=== PATIENT | male | born 1950 | race Caucasian/White ===

== ENCOUNTER 2019-10-14 13:13 | Inpatient (IN) ==
--- NOTE | 2019-10-14 15:00 | Diag Imaging Result Doc PS360 ---
EXAM: US GB < RUQ (LIMITED) HISTORY: RUQ abdo pain TECHNIQUE: Right upper quadrant ultrasound COMPARISON: None. FINDINGS: There is fatty infiltration of the liver. It is difficult to penetrate the liver. Normal gallbladder. No stones. No biliary ductal dilatation. Normal right kidney. No hydronephrosis. No ascites in the right upper quadrant. The aorta and pancreas are obscured. IMPRESSION: Fatty infiltration of the liver. Electronically signed by Cisco Bonner 10/14/2019 2:58 PM
[2019-10-14] MEDS ORDERED: TORADOL IV ONE (15:12)
--- NOTE | 2019-10-14 15:15 | EKG Report ---
Test Performed on : 10/14/2019 2:56:16 PM Test Reason : bp Blood Pressure : / mmHG Vent. Rate : 107 BPM Atrial Rate : 107 BPM P-R Int : 200 ms QRS Dur : 122 ms QT Int : 340 ms P-R-T Axes : 076 -39 044 degrees QTc Int : 453 ms Sinus tachycardia. Left axis deviation Right bundle branch block Minimal voltage criteria for LVH, may be normal variant Abnormal ECG No previous ECGs available Unconfirmed Result
[2019-10-14] MEDS ORDERED: TYLENOL PO ONE (15:43)
[2019-10-14 15:44] LABS: ALB/GLOB RATIO 1.5; ALBUMIN 4.8 g/dL (3.5-5.0); CALCIUM 10.4 mg/dL (8.8-10.2); CREATININE 1.6 mg/dL (0.7-1.2); POTASSIUM 4.4 mmol/L (3.5-5.1); TOTAL BILIRUBIN 0.7 mg/dL (0.20-1.00); TOTAL PROTEIN 8.1 g/dL (6.3-8.3)
[2019-10-14] MEDS ORDERED: NS 1,000 ML IV ONE (16:08)
--- NOTE | 2019-10-14 16:24 | Diag Imaging Result Doc PS360 ---
EXAM: CT ABDOMEN/PELVIS W/O CONTRAST HISTORY: abdo pain, leukocytosis TECHNIQUE: CT abdomen and pelvis without oral or intravenous contrast COMPARISON: None. FINDINGS: No calcified gallstones or adjacent inflammation. There is fatty infiltration of the liver. No splenomegaly. No inflammation about the pancreas. Normal adrenal glands. There are multiple bilateral renal stones. No left-sided hydronephrosis or left ureteral stone. There is a 6 x 6 x 7 mm stone in the mid right ureter with mild to moderate hydronephrosis. No aortic aneurysm. Prominent atherosclerosis. No bowel obstruction. No abscess. The urinary bladder is moderately distended. There are prostatic calcifications. Prostate is not enlarged. IMPRESSION: Right ureteral stone with hydronephrosis. There are multiple other bilateral nonobstructing renal stones. This exam was performed using automated exposure control, adjustment of mA or kV according to patient size, and/or use of iterative reconstruction technique. Electronically signed by Cisco Bonner 10/14/2019 4:21 PM
[2019-10-14] MEDS ORDERED: ROCEPHIN 1 GM in NS 50 ML IV ONE (16:43)
--- NOTE | 2019-10-14 16:53 | PROVIDER DOCUMENTATION ---
This chart was entered by Kaylie Franklin Scribe, acting as scribe for Marcus Pink MD. HPI-Abdominal Pain/GI Problem - General Chief Complaint: Abdominal Pain Stated Complaint: STOMACH PAIN DR CUNNINGHAM SENT PT Time Seen by Provider: 10/14/19 13:35 Source: patient Allergies/Adverse Reactions: Patient Allergies Allergy/AdvReac Type Severity Reaction Status Date / Time No Known Allergies Allergy Verified 10/14/19 15:23 - History of Present Illness-ABD Nature of Presenting Problems: 68yowm presents to ED cc RUQ pain that radiates to epigastric with nausea, vomiting, diarrhea and decreased appetite since Friday night. He reports he thought he had gotten food poisoning and today went to see Dr. Cunningham/PCP and after labs where his WBC was elevated and b/p was elevated he was sent to ED for further testing of gallbladder. Pt also has had fever today. He denies CP/SOB/Cough. His b/p is 173/101 upon exam. Abdominal Pain Onset Location: reports: RUQ Pain Radiation: reports: epigastric Quality of Pain: reports: sharp Severity in ED: reports: moderate Onset/Duration: reports: 2 days ago Timing: reports: still present, changing over time Activities at Onset: denies: eating Exposure to sick contacts?: No Modifying Factors: improves with: nothing Associated Symptoms: reports: diarrhea, nausea, vomiting Similar Symptoms Previously?: Yes Recently seen or treated by another doctor?: Yes (saw Dr. Cunningham/PCP at 11am today) Review of Systems - Adult - REVIEW OF SYSTEMS - ADULT Constitutional: reports: see HPI, chills, fever. denies: fatique Eyes: reports: no symptoms reported Ears, Nose, Mouth & Throat: reports: no symptoms reported Cardiovascular: reports: see HPI. denies: chest pain Respiratory: reports: see HPI. denies: cough, shortness of breath Gastrointestinal: reports: see HPI, abdominal pain (RUQ), diarrhea, nausea, poor appetite, vomiting Genitourinary: reports: no symptoms reported Musculoskeletal: reports: no symptoms reported Integumentary: reports: no symptoms reported Neurological: reports: no symptoms reported Psychiatric: reports: no symptoms reported Endocrine: reports: no symptoms reported Hematologic/Lymphatic: reports: no symptoms reported Allergic/Immunologic: reports: no symptoms reported All Other Systems: Reviewed and Negative Past History - Adult - PAST MEDICAL HISTORY-ADULT Review of Records: reports: Nursing Assessment Review, Medications Reviewed, Social history reviewed & non-contributory. Major Childhood Illnesses: reports: denies history Cardiovascular: reports: denies history Respiratory: reports: denies history Gastrointestinal: reports: denies history Obstetrical/Gynecological: reports: denies history Genitourinary: reports: denies history Musculoskeletal: reports: denies history Neurological: reports: denies history Endocrine/Immune: reports: denies history Other Conditions: reports: denies history - IMMUNIZATION STATUS Childhood Immunizations: See Nurse Assessment Flu Vaccine: See Nurse Assessment - FAMILY HISTORY Family History: reviewed, not pertinent Physical Exam-General - PHYSICAL EXAM-ADULT Initial Vital Signs Reviewed: Yes - CONSTITUTIONAL General Appearance: appears well, alert. negative: anxious, combative - EYES Eyes: PERRL/EOMI, pink conjunctivae. negative: photophobia - HEAD, EARS, NOSE, MOUTH & THROAT HENMT: normocephalic/atraumatic, moist mucous membranes. negative: angioedema - NECK Neck: non-tender, full range of motion, supple, normal inspection. negative: lymphadenopathy - RESPIRATORY Respiratory: chest non-tender, lungs clear, normal breath sounds. negative: r honchi, wheezing - CARDIOVASCULAR Cardiovascular: normal peripheral pulses, no edema, no murmur, tachycardia. negative: bradycardia - GASTROINTESTINAL (ABDOMEN) Abdominal Exam: normal bowel sounds, soft, tenderness (RUQ and epigastric). negative: distended, rigid - LYMPHATIC Lymphatic: no adenopathy. negative: enlargement - MUSCULOSKELETAL Back Exam: normal inspection, no CVA tenderness, no vertebral tenderness Extremity: normal range of motion, non-tender, normal gait, normal inspection, no pedal edema, no calf tenderness, normal capillary refill. negative: deformity, erythema, swelling - SKIN Integumentary: normal color, normal turgor, warm/dry. negative: diaphoresis, jaundice, rash - NEUROLOGIC Neurologic: maintainer plant II-XII nml as tested, grossly normal - PSYCHIATRIC Psych/Mental Status: normal mood/affect, oriented x 3. negative: anxious Progress - PLAN OF CARE/RESULTS Progress/Plan/Lab Results: Vital Signs - 8 hr 10/14/19 13:21 Temperature 100.3 F H Pulse Rate 118 H Respiratory Rate 16 Blood Pressure 170/95 O2 Sat by Pulse Oximetry 96 Orders Category Date Time Status NEWS Score 2-4:Order NEWS Lactate Series NOW Care 10/14/19 13:25 Completed NEWS Score 2-4:Order NEWS Lactate Series NOW Care 10/14/19 14:[address] ABD/PELVIS W/IV CONT ONLY [CT] Stat Exams 10/14/19 13:36 Ordered US GB < RUQ (LIMITED) [US] Stat Exams 10/14/19 13:36 Completed AMYLASE [CHEM] Stat Lab 10/14/19 14:27 Received COMPREHENSIVE METABOLIC PANEL [CHEM] Stat Lab 10/14/19 14:27 Received LIPASE [CHEM] Stat Lab 10/14/19 14:27 Received Ketorolac [Toradol] Med 10/14/19 15:12 Discontinued 15 mg IV NOW ONE EKG [EKG] Stat Ther 10/14/19 14:59 Ordered Result Diagrams: 10/14/19 14:27 - EKG 1 Time of EKG reading by physician:: 14:56 EKG Read and Signed by:: Marcus Pink EKG Interpretation (*Must complete 3 of following elements*): Abnormal Rate: 107 Rhythm: Sinus tachycardia Leggett: left QRS: RBB, LVH OH Interval: normal ST Wave: normal - CT/MRI 1 CT Study: Abdomen, Pelvis Impression: See EMR Report (IMPRESSION: Right ureteral stone with hydronephrosis. There are multiple other bilateral nonobstructing renal stones. This exam was performed using automated exposure control, adjustment of mA or kV according to patient size, and/or use of iterative reconstruction technique. Electronically signed by Cisco Bonner 10/14/2019 4:21 PM) - ULTRASOUND (By Radiology) 1 US Study: Abdomen Impression: See EMR Report (IMPRESSION: Fatty infiltration of the liver. Electronically signed by Cisco Bonner 10/14/2019 2:58 PM) - CONSULTS/PCP/HOSPITALIST Notification #1 *Consult/PCP/Hospitalist*: Dr. Billings [phone] Time Discussed: 16:42 Consult Disposition: other (admit to hospitalist and he will see pt upstairs) #2 Consult: Teresa/ALEX [phone] Time Discussed: 16:47 Consult Disposition: Admit Departure - Departure Date of Disposition Decision: 10/14/19 Time of Disposition Decision: 16:43 DIAGNOSIS: Kidney stone, Hydronephrosis, Leukocytosis Disposition: ADMITTED INPATIENT 09 Certified Medical Emergency: Emergent Condition: Fair Referrals and Follow-Ups: Marti Cunningham MD [Primary Care Provider] - - Critical Care Note This patient required my direct & personal management of CC.: No Attestation - Physician/ GLENN Attestation Patient care was provided by Advanced Practice Provider:: No The physician spent face to face time with patient:: Yes Advanced Practice Provider documentation review:: Supervising physician onsite and consulted in the evaluation and care of this patient. The physician did have a face to face encounter with the patient. This chart was documented by the indicated scribe, (Kaylie Franklin Scribe) and accurately reflects the services I performed and decisions made by me, Marcus Pink MD, as attested by the provider's signature.
[2019-10-14] MEDS ORDERED: ZOFRAN IV PRN (17:07)
[2019-10-14] MEDS ORDERED: TYLENOL PO PRN (17:07)
[2019-10-14 17:09] LABS: BASO# 0.15 X1000 (0.0-0.2); BASO% 0.8 % (0.0-0.8); HEMATOCRIT 49.8 % (42.0-52.0); HEMOGLOBIN 16.7 g/dL (14.0-18.0); IMM GRAN# 0.04 X1000 (0.0-0.04); IMM GRAN% 0.2 % (0.0-0.5); LYMPH# 1.16 X1000 (1.2-3.4); MCH 30.5 PG (27-31); MCHC 33.5 g/dL (33-37); MCV 90.9 FL (81-99); MONO# 2.33 X1000 (0.11-0.59); MONO% 12.1 % (1.7-9.3); MPV 9.6 FL (7.4-10.4); NEUT# 15.51 X1000 (1.4-6.5); NEUT% 80.9 % (42.2-75.2); PLT 213 X1000 (130-400); RBC 5.48 XMIL (4.7-6.1); RDW 13.2 % (11.5-14.5); WBC 19.19 X1000 (4.8-10.8)
[2019-10-14] MEDS ORDERED: FENTANYL ONE (17:44)
[2019-10-14] MEDS ORDERED: DIPRIVAN 1% ONE (17:44)
[2019-10-14 17:56] LABS: URINE SOURCE CLEAN CATCH
--- NOTE | 2019-10-14 17:58 | HISTORY AND PHYSICAL ---
HISTORY OF PRESENT ILLNESS: Mr. Frias is a 68-year-old followed by Dr. Marti Mcdaniel. He started having pain. This is , I think it started on Friday, right flank pain accompanied by nausea and vomiting, and it just continued to progress. He has had kidney stones before. He has had one that has been extracted and he has passed a couple of stones on his own. PAST MEDICAL HISTORY: Includes obstructive sleep apnea; hypertension, controlled on medicine. He has had benign prostatic hypertrophy. He has neuropathy. No history of diabetes. History of anxiety and depression. PAST SURGICAL HISTORY: As far as surgeries, he has had both knees replaced. He has had a kidney stone extracted. I am not sure which side. He did have his right 5th index finger caught in a universal joint of a [employer] and it was amputated. Otherwise unremarkable history. ALLERGIES: No known drug allergies. SOCIAL HISTORY: He does not smoke or drink alcohol. FAMILY HISTORY: Unremarkable. No heart, lung or kidney problems of which he is aware. REVIEW OF SYSTEMS: In general, no weight gain or loss. No fever or chills. HEENT unremarkable.Respiratory: No increased work of breathing or dyspnea. Cardiovascular: No chest pain or tachycardic palpitations. GI and are unremarkable except for above. Musculoskeletal/neurologic: No focal complaints. He does have known gallstones per ultrasound in the past. Apparently sent over from Dr. Mcdaniel's office where they had done lab. He did have leukocytosis. PHYSICAL EXAMINATION: GENERAL: On exam in the emergency room, awake and alert, very pleasant. Weight 260 pounds, height 6 feet. VITAL SIGNS: Temperature 100.3 degrees, pulse 118, respirations 16, blood pressure 170/95. HEENT: Pupils were equal and round. NECK: CVP less than 6 cm. No distended neck veins. LUNGS: Clear in all lung lowry. CARDIOVASCULAR: Regular rhythm and rate without murmur or S3. ABDOMEN: Soft. SKIN: Warm and dry. LABORATORY DATA: Sodium 136, potassium 4.4, chloride 94, BUN 23, creatinine 1.6. AST 27, ALT was 24, alkaline phosphatase was 112, amylase 30, lipase 12. DIAGNOSTIC DATA: CT of the pelvis and abdomen: Right ureteral stone with hydronephrosis; there are multiple other bilateral nonobstructing renal stones. Abdominal ultrasound: Fatty infiltration of the liver; no stones appreciated; normal gallbladder. ASSESSMENT AND PLAN: 1. Right hydronephrosis, right ureteral stone. Dr. Billings is aware, Urology. The stone measures 6 x 6 x 7 in the mid right ureter. It correlates to where he is hurting in the right flank. I think Dr. Billings is planning on cystourethroscopy and probably placing a stent. We are going to treat him with some antibiotics because of his leukocytosis and treat him for pyelonephritis as well. He has no known allergies, so I think we are good to put him on ceftriaxone 1 g now, then every 24 hours. 2. History of hypertension, aware. On looking at his home medicines, I do not know if we have those yet. I am not sure what he takes for blood pressure or if he takes anything. Actually, he is on Hyzaar. That is what he is taking, 100/12.5. We will continue that. 3. He has neuropathy. We will keep him on his gabapentin. Actually, he is taking gabapentin and Lyrica for his neuropathy. 4. He has a history of benign prostatic hypertrophy. We will continue his Flomax 0.4 mg daily. 5. History of anxiety and depression. Continue his Lexapro. cc: Maco Fitzgerald MD
[2019-10-14 18:10] LABS: BILIRUBIN URINE NEGATIVE (NEGATIVE); BLOOD URINE MODERATE (NEGATIVE); COLOR YELLOW; GLUCOSE URINE NEGATIVE (NEGATIVE); KETONE URINE NEGATIVE (NEGATIVE); LEUKOCYTES URINE NEGATIVE (NEGATIVE); NITRITE URINE NEGATIVE (NEGATIVE); PROTEIN URINE 50 mg/dL (NEGATIVE); SP GRAVITY URINE 1.024; TURBIDITY URINE CLEAR (CLEAR); UROBILINOGEN URINE NORMAL (NORMAL)
[2019-10-14 18:12] LABS: UR EPITHELIAL CELLS <10 /HPF (<10); URINE BACTERIA NEGATIVE /HPF; URINE RBC <10 /HPF (<10); URINE WBC <10 /HPF (<10)
--- NOTE | 2019-10-14 18:41 | CONSULTATION ---
DATE OF CONSULTATION: 10/14/2019 CHIEF COMPLAINT: Right ureteral stone with hydronephrosis and likely urinary tract infection. HISTORY OF PRESENT ILLNESS: Mr. Frias is a 68-year-old with history of hypertension, hypercholesterolemia, and history of nephrolithiasis who presents for consultation regarding abdominal and flank pain. The patient states for the past several days he has been having epigastric pain with nausea, vomiting, diarrhea, and decreased appetite. The patient states he has been able to tolerate p.o. intake since Friday and initially thought this may be food poisoning. The patient was seen by his primary care physician today and had blood work drawn which showed a leukocytosis with a white blood cell count of 20. He was found to have elevated blood pressure and was sent to the emergency room for further evaluation. In the emergency room the patient had a CT abdomen and pelvis which showed an obstructing right mid ureteral stone measuring approximately 6 mm in size causing proximal hydronephrosis. There were bilateral nonobstructing stones in both kidneys. The patient was evaluated in the emergency room and complaining of nausea and pain in the right mid abdomen with associated fevers. He says he had a temperature up to 100.2 at home and had a temperature at 100.3 degrees in the emergency room. Blood work shows creatinine elevated 1.6 with white blood cell count of 19. He states he has had prior stone surgery before most recently approximately 20 years ago and had to have "emergent surgery" for his kidney stone. He has been able to pass kidney stones since then. The patient feels like his symptoms are similar to other stone presentations, but not quite as severe. Initially, the patient thought that he had cholecystitis or an ileus. PAST SURGICAL HISTORY: 1. Ureteroscopic removal of kidney stones. 2. Right digit amputation. 3. Bilateral knee replacements. 4. Hernia surgery. PAST MEDICAL HISTORY: 1. Diverticulosis. 2. Hypertension. 3. Hyperlipidemia. 4. Nephrolithiasis. 5. Bilateral knee replacements. 6. BPH 7. Anxiety 8. Neuropathy ALLERGIES: None. MEDICATIONS: Medications have not been entered yet from his home medications. SOCIAL HISTORY: Denies tobacco or illicit drug use. FAMILY HISTORY: Denies family history of malignancy. REVIEW OF SYSTEMS: A 12-point review of systems performed with all pertinent positives and negatives in the HPI. PHYSICAL EXAMINATION: Vital Signs: Temperature 100.3 degrees, heart rate 118, blood pressure 170/95. General: Mild distress. Alert and oriented x3. HEENT: Normocephalic, atraumatic. Pupils equal, round, and reactive to light. Mucous membranes moist. Neck: Trachea midline with no obvious masses. Respiratory: Good respiratory effort without audible wheezing or rales. Cardiovascular: Evidence of tachycardia with heart rates ranging 105 to 118. Abdomen: Tenderness to palpation in the right upper quadrant. No evidence of rebound, tenderness, or guarding. GENITOURINARY: No suprapubic tenderness. No CVA tenderness. Normal phallus with hypospadic meatus at the mcdonald. 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 Musculoskeletal: Moving all extremities. Skin: No obvious skin lesions or rashes. LABORATORIES: White blood cell count 19.2, hemoglobin 16.7, hematocrit 49.8, platelets 213,000. Sodium 136, potassium 4.4, chloride 94, bicarb 24, BUN 23, creatinine 1.6, glucose 125, calcium 10.4. IMAGING: CT abdomen and pelvis images reviewed which showed bilateral nonobstructing renal stones with evidence of an obstructing right mid ureteral stone with associated hydronephrosis as well as evidence of straining around the right kidney and periureteral inflammation. ASSESSMENT AND PLAN: The patient is a 68-year-old with hypertension, hyperlipidemia, and history of nephrolithiasis who presents in consultation regarding obstructing right ureteral stone. The patient has obstructive uropathy with elevated creatinine at 1.6 with white blood cell count elevated at 20. He has been tachycardic up to 118 and is quite sweaty on appearance with a temperature of 100.3 degrees in the emergency room. The patient continues to have pain and has no history of nephrolithiasis in the past, but has not had any intervention in a number of years. He has felt like he has passed stones previously since then. He states he has been dealing with these symptoms for approximately 2 days now and has been unable to tolerate p.o. intake. On talking with him, I reviewed that he has leukocytosis with concern for infection with perinephric straining around the kidney on the right side as well as obstructing ureteral stone. I have recommended emergent surgery with cystoscopy, possible right ureteroscopy, lithotripsy and stone basket extraction, and placement of right ureteral stent. Discussed risks, benefits, and alternatives of the procedure, and the patient elected to proceed. We will plan to proceed with procedure later this afternoon. cc: Rusty Billings MD MTDD
[2019-10-14] MEDS ORDERED: DECADRON ONE (20:02)
[2019-10-14] MEDS ORDERED: XYLOCAINE-MPF 2% ONE (20:02)
[2019-10-14] MEDS ORDERED: SODIUM CHLORIDE 0.9% 10 ML ONE (20:02)
[2019-10-14] MEDS ORDERED: OFIRMEV 1000 MG/ISOTONIC SOLN 1,000 MG/100 ML BOTTLE ONE (20:02)
[2019-10-14] MEDS ORDERED: NEO-SYNEPHRINE ONE (20:02)
[2019-10-14] MEDS ORDERED: ZOFRAN ONE (20:02)
[2019-10-15] MEDS: NS 1,000 ML IV SCH ×3 (05:05→11:43)
[2019-10-15 06:37] LABS: BASO# 0.01 X1000 (0.0-0.2); BASO% 0.1 % (0.0-0.8); HEMATOCRIT 44.9 % (42.0-52.0); IMM GRAN# 0.02 X1000 (0.0-0.04); IMM GRAN% 0.1 % (0.0-0.5); LYMPH# 1.02 X1000 (1.2-3.4); LYMPH% 7.4 % (20.5-51.1); MCH 30.7 PG (27-31); MCHC 33.4 g/dL (33-37); MONO# 0.95 X1000 (0.11-0.59); MONO% 6.9 % (1.7-9.3); MPV 9.3 FL (7.4-10.4); NEUT# 11.77 X1000 (1.4-6.5); NEUT% 85.5 % (42.2-75.2); PLT 181 X1000 (130-400); RBC 4.88 XMIL (4.7-6.1); WBC 13.77 X1000 (4.8-10.8)
[2019-10-15 06:52] LABS: ALBUMIN 3.6 g/dL (3.5-5.0); CREATININE 1.3 mg/dL (0.7-1.2); MAGNESIUM 2.3 mg/dL (1.5-2.7); POTASSIUM 4.3 mmol/L (3.5-5.1); TOTAL BILIRUBIN 0.44 mg/dL (0.20-1.00); TOTAL PROTEIN 7.1 g/dL (6.3-8.3)
[2019-10-15 07:08] LABS: LYMPHS 8 % (21-51); MONO 6 % (1-9); SEGS 86 % (42-75)
[2019-10-15 07:37] VITALS: BP 178/87
--- NOTE | 2019-10-15 08:05 | PROGRESS NOTE ---
DATE: 10/15/2019 SUBJECTIVE: No acute events overnight. The patient is postoperative day 1 from cystoscopy with urethral dilation, right ureteroscopy, lithotripsy, stone basket extraction, and right ureteral stent placement. The patient states he feels better today. He denies any nausea or vomiting. He is able to tolerate good p.o. intake. He has been urinating without issue. He states he has had a large volume of urine; however, does not feel like he is having urgency and frequency. PHYSICAL EXAMINATION: Vital Signs: Temperature 98 degrees, heart rate 78, blood pressure 134/60, oxygenation 97% on room air. General: No acute distress. Resting comfortably in bed. Alert and oriented x3. Respiratory: Good respiratory effort without audible wheezing or rales. Abdomen: Soft, nontender, nondistended. Genitourinary: No suprapubic tenderness. No CVA tenderness. LABORATORIES: White blood cell count 13.8, hemoglobin 15, hematocrit 44.9, platelets 181,000. Sodium 137, potassium 4.3, chloride 99, bicarbonate 25, BUN 26, creatinine 1.3 glucose 113, calcium 9. ASSESSMENT AND PLAN: Mr. Frias is a 68-year-old who is postoperative day 1 from cystoscopy with urethral dilation, right ureteroscopy, lithotripsy, stone basket extraction, and right ureteral stent placement. The patient seems to be doing well. He remains afebrile with stable vital signs. Creatinine is improved to 1.3 from 1.6 yesterday. White blood cell count downtrending at 13.8 today. Overall, patient seems to be doing well. Urinalysis yesterday showed no evidence of leukocytes or bacteria. The patient underwent uneventful ureteroscopy and removal of stone. Ultimately, the patient will need to have his stent removed in approximately 1 week in the office with cystoscopy. I gave him pain medication, antibiotics, and medication for stent discomfort. Encouraged him to continue on Flomax 0.4 mg. If the patient does well, we could consider discharge later today. We will continue to monitor while inpatient. cc: MD SRI Molina
--- NOTE | 2019-10-15 08:09 | OPERATIVE NOTE ---
PROCEDURE DATE: 10/15/2019 PREOPERATIVE DIAGNOSES: 1. Bilateral nonobstructing renal stones. 2. Right ureteral stone with hydronephrosis. 3. Hypospadias with meatal stenosis. 4. Leukocytosis POSTOPERATIVE DIAGNOSES: 1. Bilateral nonobstructing renal stones. 2. Right ureteral stone with hydronephrosis. 3. Hypospadias with meatal stenosis. 4. Leukocytosis PROCEDURES PERFORMED: 1. Cystoscopy with urethral dilation. 2. Right ureteroscopy, with laser lithotripsy. 3. Stone basket extraction. 4. Right ureteral stent placement. SURGEON: Rusty Billings MD. COMMUNITY RELATIONS LIAISON: None. COMPLICATIONS: None. BLOOD LOSS: 5 mL. DRAINS: 6 x 26 cm right ureteral stent. SPECIMEN REMOVED: Right ureteral stone. ANESTHESIA: LMA. OPERATIVE FINDINGS: The patient had evidence of a glandular hypospadias that required urethral dilation due to meatal stenosis. I was able to perform cystoscopy, which showed a normal urethra proximal to this with a slightly enlarged prostate. Once inside the bladder the entirety of the bladder was inspected with no diverticulum, cellules, or trabeculations. A slight median lobe was felt inside the bladder from the prostate. No papillary lesions were visualized with 30- and 70- degree lens. [employer] Worker fluoroscopy showed there was a stone in the mid ureter. I was able to pass the ureteroscope up to this location and this was fragmented and removed. He was able to undergo uneventful placement of right ureteral stent. INDICATIONS FOR PROCEDURE: Mr. Frias is a 68-year-old, who presented to his primary care physician with a 2-day history of abdominal pain, diarrhea, low-grade temperature, and nausea and vomiting. The patient was felt to have possible cholecystitis versus an ileus and was transferred to the emergency room for CT scan. CT scan was performed which showed an obstructing right ureteral stone in the mid ureter with bilateral nonobstructing stones within the kidney themselves. The patient was evaluated with low-grade temperature and a white blood count of 20. The patient was taken to the operating room emergently due to concern over infection and obstructing ureteral stone. Risks, benefits, and alternatives to the procedure were discussed with the patient and the patient elected to proceed DESCRIPTION OF PROCEDURE: After informed consent was obtained the patient was brought to the operating room and placed on the operative table in the supine position. The patient received preoperative antibiotics in the emergency room and underwent LMA placement. He was positioned into a dorsal lithotomy position and was then prepped and draped in the usual sterile fashion. A preoperative time-out was performed with all parties in agreement, including anesthesia, surgical, and nursing staff, at which point I inserted a 21-Danish cystourethroscope. However, due to the narrowness of his urethra, Sendy sounds were obtained. The patient had evidence of a glandular hypospadias. I systematically dilated from a 16 up to a 24F, still slightly tight, but was able to eventually advance the cystourethroscope through the urethra showing normal urethra, no stricture disease or papillary lesions was seen proximal. Once inside the posterior urethra the patient's prostate was evaluated and it was slightly enlarged, with evidence of obstruction in the median lobe. Once inside the bladder the entirety of the bladder was inspected with no diverticulum, cellules, or trabeculations. No papillary lesions were visualized. Both ureteral orifices were visualized at the base of the bladder with efflux of clear yellow urine. Once the bladder was inspected with the 30- and 70-degree lens, a ZIPwire was then passed through the scope into the right ureteral orifice and up into the collecting system itself. The patient's bladder was decompressed and a semi-rigid ureteroscope was advanced through the urethra and into the bladder. Using a PTFE wire the right ureteral orifice was able to be cannulized and advanced into the ureter itself and up to the site of the stone. The stone was seen in the mid ureter behind a fold in the ureter itself and was systematically fragmented using a 365 micron fiber on settings of 6 and 0.6. Care was taken due to the stone's location as well as hypermobility of the ureter in the midportion of the ureter. Some fragments were dropped in the bladder. Multiple passages of the ureteroscope up the ureter were performed with ease and all stone fragments were removed and the ureteroscope was subsequently advanced to the proximal ureter with no significant stone fragments visualized. The ZIPwire was left in place and then back-loaded through the cystourethroscope, and a 6 x 26 cm stent was advanced over the wire and into the kidney and was endoscopically visualized in the bladder. The strings were removed and all stone fragments were retrieved from the bladder, and the bladder was cycled multiple times with no active bleeding seen. The patient's bladder was decompressed. The patient was awoken and was taken to recovery in stable condition. DISPOSITION: The patient will be admitted to the floor overnight for observation. We will continue with antibiotics and follow up a.m. labs. cc: Rusty Billings MD MTDD
[2019-10-15] MEDS ORDERED: ROCEPHIN 1 GM in NS 50 ML IV SCH (09:00)
[2019-10-15] MEDS ORDERED: ZYLOPRIM PO SCH (09:00)
[2019-10-15] MEDS ORDERED: PAMELOR PO SCH (09:00)
[2019-10-15] MEDS ORDERED: FLOMAX PO SCH (09:00)
[2019-10-15] MEDS ORDERED: CELEBREX PO SCH (09:00)
[2019-10-15] MEDS ORDERED: NEURONTIN PO SCH (09:00)
[2019-10-15] MEDS ORDERED: HYDROCHLOROTHIAZIDE PO SCH (09:00)
[2019-10-15] MEDS ORDERED: BENICAR PO SCH (09:00)
[2019-10-15] MEDS ORDERED: PRAVACHOL PO SCH (09:00)
[2019-10-15] MEDS ORDERED: LEXAPRO PO SCH (09:00)
--- NOTE | 2019-10-15 09:14 | Diag Imaging Result Doc PS360 ---
EXAM: FLUROSCOPY CYSTO 10/14/2019 HISTORY: RT LASER LITH/SBE/STENT PLACEMENT TECHNIQUE: Nine images, COMMENT: Ureteroscopy and stent placement was performed on the right. No contrast was administered. There is a fair amount of gas throughout the colon. IMPRESSION: Right ureteral stent placement. Electronically signed by David Gaona 10/15/2019 9:12 AM
--- NOTE | 2019-10-15 09:29 | DISCHARGE SUMMARY ---
ADMISSION DATE: 10/14/2019 DISCHARGE DATE: 10/15/2019 HOSPITAL COURSE: Mr. Frias was admitted yesterday on 10/14/2019, anticipate going home today on 10/15/2019. This is a 68-year-old patient of Dr. Marti Mcdaniel. He was admitted on . On Friday, he developed right flank pain accompanied by nausea and vomiting, continued to progress. On presentation, found right hydronephrosis, right ureteral stone. Dr. Billings of Urology was consulted. He has a past history of hypertension, hyperlipidemia, and history of nephrolithiasis. He had a little bit of elevated creatinine at 1.6. Sinus tachycardia about 118, quite sweaty in appearance. Temperature was 100.3 degrees. Found a right-sided obstructing ureteral stone. He underwent cystoscopy with urethral dilatation, right ureteroscopy and laser lithotripsy, stone basket extraction, right ureteral stent placement. He is feeling good and wants to go home. He remains afebrile. His labs this morning were white count 13,770, hematocrit 44, hemoglobin 15, platelet count 181,000. Electrolytes: Creatinine came down to 1.3. No pain or nausea. So we will plan to let him go home at lunch time. We will keep him on antibiotic for 7 days, and I will give him Levaquin 750 mg daily for 7 days. Otherwise, discharge him on his home medications. He does have neuropathy, so keep him on Lyrica 50 mg a day, allopurinol 100 mg daily, Celebrex 200 mg daily, Lexapro 10 mg a day, Neurontin 800 mg p.o. t.i.d., hydrochlorothiazide 25 mg a day, Pamelor 75 mg p.o. daily, Benicar 40 mg a day, Pravachol 40 mg a day, and Flomax 0.4 mg daily. He will follow up with Dr. Billings in the next 2 weeks. cc: Maco Fitzgerald MD
[2019-10-15] MEDS ORDERED: PNEUMOVAX 23 IM ONE (11:00)
[2019-10-15] MEDS ORDERED: LYRICA PO SCH (21:00)
== END 2019-10-15 12:02 | disposition home or self-care (01) | DRG 661 ==
LOC: ED 13:13 → EDIPHOLD 17:37 → 4N 20:14
PROVIDERS: ATTEND Emergency Medicine